=== PATIENT | female | born 1945 | race Caucasian/White ===

== ENCOUNTER → 2018-01-13 | Outpatient (CLI) | payer MEDICARE, OTHER ==
[~2018-01-13] MED LIST: ASCO-183 PO; CALC-734 PO; CHOL200038 PO; CYCL1DRO6 OP; DIPH0.5D12 IM; ENOX60DI8 SQ; ESTR-25 PO; IBAN150T6 PO; IBU800 PO; LOR5/325 PO; MULT-820 PO; OMEG-11 PO; OMEP-114 PO; PNEU0.5D3 IM; SIMV-49 PO; WARF-12 PO
--- NOTE | 2018-01-13 15:23 | RADIOLOGY IMAGING REPORT ---
FACILITY: [facility] - [place] PATIENT NAME: RUBEN DUMONT : [id number] MR: [id number] V: [id number] EXAM DATE: [id number] ORDERING PHYSICIAN: DIPTI GORDILLO TECHNOLOGIST: Hamida Rodriguez PROCEDURE:BILATERAL DIGITAL SCREENING MAMMOGRAM WITH CAD ASSISTED INTERPRETATION & 3D TOMOSYNTHESIS COMPARISON:11/23/2011 & 06/27/2015 Family History: Sister INDICATIONS:SCREENING BREAST DENSITY: Breasts demonstrate scattered fibroglandular tissue. FINDINGS: The study demonstrates no architectural distortions, clusters of suspicious microcalcifications or concerning mass lesions. On the tomosynthesis there is a 2.5cm lucent lesion seen in the upper outer aspect of the Left breast posterior third aspect consistent with an oil cyst. DIAGNOSTIC CATEGORY 2--Benign RECOMMENDATIONS: ROUTINE YEARLY MAMMOGRAM AND CLINICAL EVALUATION. IMPRESSION: BIRADS 2: Benign Dictated by: Pro Quesada M.D. on 01/13/2018 at 13:06 Transcribed by: ESTIVEN on 01/13/2018 at 14:23 Approved by: Pro Quesada M.D. on 01/13/2018 at 15:22 [facility]
== END ==
LOC: MAMO 00:37
PROVIDERS: ATTEND Internal Medicine
DX: Z12.31 Encounter for screening mammogram for malignant neoplasm of breast (principal); N60.02 Solitary cyst of left breast
CPT/HCPCS: 77063; 77067